=== PATIENT | female | born 1970 | race Hispanic/Latino ===

== ENCOUNTER 2018-12-08 19:56 | Emergency (ER) | payer SELFPAY ==
[2018-12-08 20:45] VITALS: RESP 18; O2SAT 98
[2018-12-08] MEDS ORDERED: Oxycodone/Acetaminophen 5/325 mg Tab PO STA (21:25)
--- NOTE | 2018-12-08 22:31 | ED PDOC ---
Upper Extremity Pain/Injury Time Seen by Provider: 12/08/18 21:04 Chief Complaint (Nursing): Finger,Hand,&Wrist Chief Complaint (Provider): Left Radius Fracture History Per: Patient History/Exam Limitations: no limitations Onset/Duration Of Symptoms: Hrs (several ) Current Symptoms Are (Timing): Still Present Quality: Sharp, Dull, "Pain" (Pt presents to the ED complaining of left wrist pain after falling in a FOOSH injury while ice skating earlier today. Pt indicates that when she fell on the ice, she caught all of her weihgt on the left wrist with an outstretched hand. Pt denies other injuries; her capillary refill is <2seconds in all distal extremities and she has full active and passive ROM in the distal joints of the left hand and elbow. ) Past Medical History Reviewed: Historical Data, Nursing Documentation, Vital Signs Vital Signs: Last Vital Signs Temp 98.3 F 12/08/18 20:43 Pulse 99 H 12/08/18 20:43 Resp 18 12/08/18 20:43 BP 174/124 H 12/08/18 20:43 Pulse Ox 98 12/08/18 20:43 - Family History Family History: States: Unknown Family Hx - Home Medications Home Medications: Ambulatory Orders Medication Instructions Recorded oxyCODONE/Acetaminophen [Percocet 1 ea PO QID #16 tab 12/08/18 5/325 mg Tab] - Allergies Allergies/Adverse Reactions: Allergies Allergy/AdvReac Type Severity Reaction Status Date / Time No Known Allergies Allergy Verified 12/08/18 20:43 Review of Systems ROS Statement: Except As Marked, All Systems Reviewed And Found Negative Musculoskeletal: Positive for: Arm Pain, Hand Pain Physical Exam - Reviewed Nursing Documentation Reviewed: Yes Vital Signs Reviewed: Yes - Physical Exam Appears: Positive for: Well, Non-toxic, No Acute Distress. Negative for: Uncomfortable Head Exam: Positive for: ATRAUMATIC, NORMAL INSPECTION Skin: Positive for: Normal Color, Warm, Dry. Negative for: Diaphoresis, Pallor, Rash Eye Exam: Positive for: Normal appearance. Negative for: Nystagmus, Periorbital swelling, Periorbital tenderness Neck: Positive for: Normal, Painless ROM, Supple. Negative for: Decreased ROM Cardiovascular/Chest: Positive for: Regular Rate, Rhythm Respiratory: Positive for: Normal Breath Sounds Pulses-Carotid (L): 2+ Pulses-Carotid (R): 2+ Pulses-Radial (L): 2+ Pulses-Radial (R): 2+ Extremity: Positive for: Normal ROM (normal active and passive ROM on the left upper extremity with exception of the wrist joint ), Tenderness (TTP over distal radius both volar nad dorsal asptects), Capillary Refill, Deformity (at the distal left radius), Swelling (left distal radius). Negative for: Calf Tenderness Neurologic/Psych: Positive for: Alert, sample dye mixer II-XII - ECG O2 Sat by Pulse Oximetry: 98 Medical Decision Making Medical Decision Making: Xray of left wrist Showing moderatly displaced fx of the distal radius a volar splint and sling was provided Pt will be travelling home to [place] in the morning and was advised to follow up with orthopedic care immediatly upon arrival in [place]. Pt acknowleded and understood; the images of her xrays were provided to the patient on a disk Rx percocet 5/325 #12 Disposition - Clinical Impression Clinical Impression: Radius distal fracture - Patient ED Disposition Is Patient to be Admitted: No Counseled Patient/Family Regarding: Studies Performed, Diagnosis, Need For Followup, Rx Given - Disposition Disposition: Routine/Home Disposition Time: 22:47 Condition: STABLE Additional Instructions: Rest Ice Elevation Consult with an othropedic surgeon immediately upon arrival in [place]; you have been provided with films of your wrist xray You have been provided with nrcotic pain medication for break through pain, otherwise 600mg of motrin and 650 milligrams of apap/ylenol Prescriptions: oxyCODONE/Acetaminophen [Percocet 5/325 mg Tab] 1 ea PO QID #16 tab Instructions: Forearm Fracture (DC), Radius Fracture, Radius Fracture (DC) Forms: [employer] (Hebrew)
[2018-12-08 23:32] VITALS: BP 173/88; PULSE 76; TEMP 98.2
--- NOTE | 2018-12-09 10:25 | RAD ---
Date of service: 12/08/2018 PROCEDURE: Left Wrist Radiographs. HISTORY: fall with deformity COMPARISON: None. FINDINGS: BONES: Carpal bones are intact without fracture including the navicular bone. However, there is a comminuted, articular impacted fracture with dorsal angulation of the distal left radius compatible a Colles fracture. The ulna appears intact including the styloid. JOINTS: Normal. No dislocation. SOFT TISSUES: Normal. OTHER FINDINGS: None. IMPRESSION: Articular Colles fracture distal left radius. Carpal bones intact left wrist. No subluxation or dislocation.
== END 2018-12-08 23:00 | disposition home or self-care (01) ==
LOC: H.ER 19:56
DX: S52.502A Unspecified fracture of the lower end of left radius, initial encounter for closed fracture (principal); W00.0XXA Fall on same level due to ice and snow, initial encounter; Y93.21 Activity, ice skating
CPT/HCPCS: 29125; 73110; 81025; 96372; 99285; J1885